=== PATIENT | female | born 1950 | race Caucasian/White ===

== ENCOUNTER 2017-06-29 14:58 | Emergency (ER) | payer MEDICARE ==
[~2017-06-29] VITALS: Ht 162.6 cm; Wt 55.5 kg
[2017-06-29 15:16] VITALS: BP 178/90; PULSE 87; RESP 20; TEMP 98.5; O2SAT 100
--- NOTE | 2017-06-29 15:58 | RADRPT ---
EXAM DATE/TIME: 06/29/2017 15:30 [place] COMPARISON: No previous studies available for comparison. INDICATIONS : Shortness of breath. MEDICAL HISTORY : None. SURGICAL HISTORY : cervical fusion, lumbar fusion. ENCOUNTER: Initial ACUITY: 1 day PAIN SCORE: 0/10 LOCATION: Bilateral chest FINDINGS: No infiltrate, effusion or pneumothorax demonstrated. Heart size upper limits of normal. Thoracic aorta is tortuous. Previous cervical and thoracolumbar spine surgery. CONCLUSION: No acute cardiopulmonary disease demonstrated. Kulwinder Matos MD on June 29, 2017 at 15:56 Board Certified Radiologist. This report was verified electronically.
[2017-06-29] MEDS ORDERED: HYDR25TA5 PO (16:15)
[2017-06-29] MEDS ORDERED: CARD4TAB2 PO (16:15)
[2017-06-29] MEDS ORDERED: CLON.1 PO (16:15)
[2017-06-29] MEDS ORDERED: PERC10TA27 PO (16:15)
[2017-06-29] MEDS ORDERED: ALBU0.08 NEB (16:15)
[2017-06-29] MEDS ORDERED: CLON1 PO (16:16)
[2017-06-29] MEDS ORDERED: SODIUM CHLORIDE 0.9% FLUSH 10 ML FLUSH IVF PRN (16:30)
[2017-06-29] MEDS ORDERED: methylPREDNISolone SOD SUCC 125 MG/2 ML VIAL IV PUSH ONE (16:30)
[2017-06-29 16:32] VITALS: RESP 20; O2SAT 99
[2017-06-29] MEDS: RESP: ALBUTEROL 2.5 MG/IPRATROPIUM 0.5 MG NEB (SCH) INH (16:39)
[2017-06-29] MEDS ORDERED: ACETAMINOPHEN/HYDROcodone 325 MG/5 MG TAB PO ONE (17:30)
[2017-06-29 17:34] LABS: AUTOMATED NEUTROPHIL # 4.4 TH/MM3 (1.8-7.7); BASOPHIL % 0.2 % (0.0-2.0); EOSINOPHIL % 0.1 % (0.0-4.0); HEMATOCRIT 33.8 % (35.0-46.0); HEMOGLOBIN 10.6 GM/DL (11.6-15.3); LYMPH % 24.8 % (9.0-44.0); LYMPHOCYTE # 1.7 TH/MM3 (1.0-4.8); MEAN CELL VOLUME 61.3 FL (80.0-100.0); MEAN CORPUSCULAR HEMOGLOBIN 19.1 PG (27.0-34.0); MEAN CORPUSCULAR HGB CONC 31.2 % (32.0-36.0); MEAN PLATELET VOLUME 8.4 FL (7.0-11.0); MONO % 9.2 % (0.0-8.0); MONOCYTE # 0.6 TH/MM3 (0-0.9); NEUT % 65.7 % (16.0-70.0); PLATELET COUNT 504 TH/MM3 (150-450); RED BLOOD COUNT 5.52 MIL/MM3 (4.00-5.30); RED CELL DISTRIBUTION WIDTH 20.7 % (11.6-17.2); WHITE BLOOD COUNT 6.7 TH/MM3 (4.0-11.0)
[2017-06-29 17:38] LABS: PROTHROMBIN TIME - PATIENT 10.6 SEC (9.8-11.6)
[2017-06-29 17:48] LABS: BICARBONATE 25.4 MEQ/L (21.0-32.0); BLOOD UREA NITROGEN 13 MG/DL (7-18); CALCIUM 9.1 MG/DL (8.5-10.1); CHLORIDE 103 MEQ/L (98-107); CREATININE 0.84 MG/DL (0.50-1.00); GLOMERULAR FILTRATION RATE 68 ML/MIN (>89); GLUCOSE,RANDOM 80 MG/DL (74-106); MAGNESIUM 1.7 MG/DL (1.5-2.5); SODIUM (NA) 139 MEQ/L (136-145)
[2017-06-29 17:51] LABS: TROPONIN I LESS THAN 0.02 NG/ML (0.02-0.05)
--- NOTE | 2017-06-29 17:56 | PD ---
HPI Chief Complaint: Respiratory Symptoms Time Seen by Provider: 16:09 Travel History International Travel<30 days: No Contact w/Intl Traveler<30days: No Traveled to known affect area: No History of Present Illness HPI Patient is a 66 year old female who comes in complaining of SOB. She has history of COPD and is still smoking. She says this has been going on for the past 2 weeks. She reports cough productive of sputum. She says she has had hot flashes that are typical of her menopausal symptoms. She has been using her albuterol without relief of her SOB. She says she has some chest tightness which is typical of her COPD. She denies leg swelling or pain. Severity is mild to moderate. PFSH Past Medical History Anxiety: Yes Cardiovascular Problems: Yes COPD: Yes Diminished Hearing: No Hypertension: Yes Psychiatric: Yes Respiratory: Yes Tetanus Vaccination: < 5 Years Influenza Vaccination: Yes ?: Not Menopausal: Yes : 2 Para: 2 Past Surgical History Genitourinary Surgery: Yes Social History Alcohol Use: Yes (RARE) Tobacco Use: Yes Substance Use: No Allergies-Medications (Allergen,Severity, Reaction): Coded Allergies: prochlorperazine (Verified Allergy, Intermediate, ALLERGIC REACTION, ) Penicillins (Verified Allergy, Unknown, HIVES, 06/29/17) erythromycin base (Verified Allergy, Unknown, HIVES , 06/29/17) Reported Meds & Prescriptions Reported Meds & Active Scripts Active Reported Klonopin (Clonazepam) 1 Mg Tab 1 Mg PO TID Catapres (Clonidine) 0.1 Mg Tab 0.1 Mg PO DAILY Albuterol Neb (Albuterol Sulfate) 2.5 Mg/3 Ml Neb 2.5 Mg NEB Q4HR NEB While awake Percocet (Oxycodone-Acetaminophen) 10-325 mg Tab 1 Tab PO Q6H PRN Cardura (Doxazosin Mesylate) 4 Mg Tab 4 Mg PO DAILY Hydrochlorothiazide 25 Mg Tab 25 Mg PO DAILY Review of Systems Except as stated in HPI: all other systems reviewed are Neg General / Constitutional: No: Fever, Chills HENT: No: Headaches, Lightheadedness Cardiovascular: No: Chest Pain or Discomfort Respiratory: Positive: Cough, Shortness of Breath Gastrointestinal: No: Nausea, Vomiting Musculoskeletal: No: Myalgias, Edema Skin: No Rash, No Change in Pigmentation Neurologic: No: Weakness, Dizziness Physical Exam Narrative GENERAL: Awake and alert, in no acute distress. SKIN: Focused skin assessment warm/dry. No wounds or signs of infection. HEAD: Atraumatic. Normocephalic. EYES: Pupils equal and round. No scleral icterus. ENT: Mucous membranes pink and moist. NECK: Trachea midline. No JVD. CARDIOVASCULAR: Regular rate and rhythm. No murmur appreciated. RESPIRATORY: No accessory muscle use. Decreased breath sounds, occasional wheezing. Breath sounds equal bilaterally. GASTROINTESTINAL: Abdomen soft, non-tender, nondistended. MUSCULOSKELETAL: No obvious deformities. No clubbing. No cyanosis. No edema. NEUROLOGICAL: Awake and alert. No obvious cranial nerve deficits. Motor grossly within normal limits. Normal speech. PSYCHIATRIC: Appropriate mood and affect; insight and judgment normal. Data Data Last Documented VS Vital Signs Date Time Temp Pulse Resp B/P (MAP) Pulse Ox O2 Delivery O2 Flow Rate FiO2 06/29/17 18:42 16 06/29/17 16:32 100 Room Air 06/29/17 16:20 81 06/29/17 15:16 98.5 178/90 (119) Orders Orders Complete Blood Count With Diff (06/29/17 15:18) Basic Metabolic Panel (Bmp) (06/29/17 15:18) B-Type Natriuretic Peptide (06/29/17 15:18) Act Partial Throm Time (Ptt) (06/29/17 15:18) Prothrombin Time / Inr (Pt) (06/29/17 15:18) Magnesium (Mg) (06/29/17 15:18) Ckmb (Isoenzyme) Profile (06/29/17 15:18) Troponin I (06/29/17 15:18) Electrocardiogram (06/29/17 15:18) Chest, Pa & Lat (06/29/17 15:18) Iv Access Insert/Monitor (06/29/17 16:27) Electrocardiogram (06/29/17 16:27) Ecg Monitoring (06/29/17 16:27) Oximetry (06/29/17 16:27) Oxygen Administration (06/29/17 16:27) Sodium Chloride 0.9% Flush (Ns Flush) (06/29/17 16:30) Methylprednisolone So Succ Inj (Solumedr (06/29/17 16:30) Albuterol-Ipratropium Neb (Duoneb Neb) (06/29/17 16:30) Acetamin-Hydrocod 325-5 Mg ([place] 5-325 (06/29/17 17:30) Labs Laboratory Tests Test 06/29/17 16:35 White Blood Count 6.7 TH/MM3 Red Blood Count 5.52 MIL/MM3 Hemoglobin 10.6 GM/DL Hematocrit 33.8 % Mean Corpuscular Volume 61.3 FL Mean Corpuscular Hemoglobin 19.1 PG Mean Corpuscular Hemoglobin Concent 31.2 % Red Cell Distribution Width 20.7 % Platelet Count 504 TH/MM3 Mean Platelet Volume 8.4 FL Neutrophils (%) (Auto) 65.7 % Lymphocytes (%) (Auto) 24.8 % Monocytes (%) (Auto) 9.2 % Eosinophils (%) (Auto) 0.1 % Basophils (%) (Auto) 0.2 % Neutrophils # (Auto) 4.4 TH/MM3 Lymphocytes # (Auto) 1.7 TH/MM3 Monocytes # (Auto) 0.6 TH/MM3 Eosinophils # (Auto) 0.0 TH/MM3 Basophils # (Auto) 0.0 TH/MM3 CBC Comment DIFF FINAL Differential Comment Prothrombin Time 10.6 SEC Prothromb Time International Ratio 1.0 RATIO Activated Partial Thromboplast Time 26.6 SEC Blood Urea Nitrogen 13 MG/DL Creatinine 0.84 MG/DL Random Glucose 80 MG/DL Calcium Level 9.1 MG/DL Magnesium Level 1.7 MG/DL Sodium Level 139 MEQ/L Potassium Level 3.8 MEQ/L Chloride Level 103 MEQ/L Carbon Dioxide Level 25.4 MEQ/L Anion Gap 11 MEQ/L Estimat Glomerular Filtration Rate 68 ML/MIN Total Creatine Kinase 68 U/L Troponin I LESS THAN 0.02 NG/ML B-Type Natriuretic Peptide 136 PG/ML [facility] Medical Decision Making Medical Screen Exam Complete: Yes Emergency Medical Condition: Yes Medical Record Reviewed: Yes Interpretation(s) ECG shows NSR at 77, minimal ST depression in II, III, aVF Differential Diagnosis COPD exacerbation vs pneumonia vs bronchitis Narrative Course Patient is a 66-year-old female who comes in complaining of shortness of breath. Exam shows some decreased breath sounds. IV established, labs sent. Labs show no acute abnormalities. Chest x-ray performed shows no acute abnormalities. Last 24 hours Impressions Chest X-Ray 06/29/17 1518 Signed Impressions: Service Date/Time: Thursday, June 29, 2017 15:30 - CONCLUSION: No acute cardiopulmonary disease demonstrated. Kulwinder Matos MD Patient given 3 DuoNeb's and a dose of Solu-Medrol. Her breathing improved. Patient's oxygen saturation has remained normal. She will be discharged with a course of steroids, antibiotics. She has albuterol at home. Advised to continue to use the albuterol and follow-up with her doctors. Advised to quit smoking. Advised to return to the ED as needed for any worsening symptoms. Diagnosis Primary Impression: COPD exacerbation Patient Instructions: COPD (Chronic Obstructive Pulmonary Disease) (ED), General Instructions Additional Instructions: Try to quit smoking. Take all of the antibiotics. Use her albuterol as needed for shortness of breath. Start the steroids tomorrow as you had a dose already today. Return to the ED as needed for any worsening symptoms. Scripts Prednisone (Prednisone) 50 Mg Tab 50 MG PO DAILY for 4 Days, #4 TAB 0 Refills Prov: Luz Maria Dobson MD 06/29/17 Levofloxacin (Levaquin) 750 Mg Tablet 750 MG PO DAILY for Infection for 7 Days, #7 TAB 0 Refills Prov: Luz Maria Dobson MD 06/29/17 Disposition: 01 DISCHARGE HOME Condition: Stable Luz Maria Dobson MD Jun 29, 2017 17:56
[2017-06-29 18:42] VITALS: RESP 16
[2017-06-29] MEDS ORDERED: PRED50 PO (19:00)
[2017-06-29] MEDS ORDERED: LEVA750T9 PO (19:00)
[2017-06-29 19:11] VITALS: BP 130/81; TEMP 97.8
--- NOTE | 2017-06-30 08:09 | EKG ---
Date Performed: 06/29/2017 Time Performed: 16:17:04 PTAGE: 66 years EKG: Sinus rhythm WITH OCCASIONAL SUPRAVENTRICULAR PREMATURE COMPLEXES POSSIBLE RIGHT VENTRICULAR CONDUCTION DELAY MIN IMAL ST DEPRESSION BORDERLINE ECG NO PREVIOUS TRACING DOCTOR: Isiah Day Interpretating Date/Time 06/30/2017 08:08:47
== END 2017-06-29 19:20 | disposition home or self-care (01) ==
LOC: NEPE 14:58
DX: J44.1 Chronic obstructive pulmonary disease with (acute) exacerbation (principal); R94.31 Abnormal electrocardiogram [ECG] [EKG]; R07.89 Other chest pain; F41.9 Anxiety disorder, unspecified; I10 Essential (primary) hypertension; Z79.899 Other long term (current) drug therapy; Z72.0 Tobacco use
CPT/HCPCS: 71046; 80048; 82550; 83735; 83880; 84484; 85025; 85610; 85730; 93005; 94640; 94664; 96374; 99285; J2930